=== PATIENT | male | born 1950 ===

== ENCOUNTER 2022-01-05 09:31 | Day surgery (SDC) | payer MEDICARE, OTHER ==
[~2022-01-05] VITALS: Ht 182.9 cm; Wt 80.9 kg
[~2022-01-05 09:31] MED LIST: Aspirin EC81 MG PO; IBUP400; MONT10T PO; TRAZ100 PO
[2022-01-05] MEDS ORDERED: TAMS.4ER PO (10:12)
[2022-01-05] MEDS ORDERED: Ventolin5 MG/1 ML INH (10:13)
[2022-01-05] MEDS ORDERED: OCUVITE BLUE L1 EACH PO (10:14)
[2022-01-05 10:26] LABS: BASOPHILS ABSOLUTE AUTO 0.03 K/mm3 (0.00-0.23); BASOPHILS PERCENT AUTO 1 % (0-2); EOSINOPHILS PERCENT AUTO 7 % (0-6); Hemoglobin 16.1 g/dL (13.5-17.5); IMMATURE GRAN ABSOLUTE AUTO 0.02 K/mm3 (0.00-0.10); IMMATURE GRAN PERCENT AUTO 0 % (0-1); LYMPHOCYTES ABSOLUTE AUTO 1.46 K/mm3 (0.84-5.20); LYMPHOCYTES PERCENT AUTO 27 % (21-46); MONOCYTES ABSOLUTE AUTO 0.41 K/mm3 (0.16-1.47); MONOCYTES PERCENT AUTO 8 % (4-13); Mean Corpuscular HGB 29.8 pg (26.0-34.0); Mean Corpuscular HGB Conc 34.3 g/dL (31.5-36.5); Mean Corpuscular Volume 87 fL (80-100); Mean Platelet Volume 9.2 fL (9.1-12.4); NEUTROPHILS ABSOLUTE AUTO 3.18 K/mm3 (1.96-9.15); NEUTROPHILS PERCENT AUTO 58 % (41-73); Platelet Count 222 K/mm3 (150-400); RDW Coefficient Variation 12.5 % (11.7-14.2); RDW Standard Deviation 39.8 fL (35.1-46.3)
--- NOTE | 2022-01-05 11:12 | NUR ---
01/05/22 1112 Fred Gregory ROPIVACAINE 0.5% 30 MLS MIXED W/ EPI 0.15 ML (1MG/ML) PER ORDER TO MAKE ROPIVACAINE 0.5% 1:200,000 FOR INJECTION AT OPSITE BY DR CRUZ. DOSE DIVIDED D/T SHORTAGE, MANAGEMENT AWARE.
== END 2022-01-05 13:15 | disposition home or self-care (01) ==
LOC: ORSCSDS 09:31
PROVIDERS: Orthopaedic Surgery
PROC: 0LB60ZZ Excision of Left Lower Arm and Wrist Tendon, Open Approach (ICD-10-PCS; principal; 2022-01-05 10:45)
DX: M19.032 Primary osteoarthritis, left wrist (principal); M65.88 Other synovitis and tenosynovitis, other site; I48.91 Unspecified atrial fibrillation; Z79.899 Other long term (current) drug therapy; Z79.82 Long term (current) use of aspirin
CPT/HCPCS: 85025; 88304; A9270; J0171; J0690; J1100; J2250; J2405; J2704; J2795; J3010; J7120